=== PATIENT | female | born 1955 | race Caucasian/White ===

== ENCOUNTER 2025-11-04 14:09 | Inpatient (IN) | payer MEDICARE, OTHER ==
[2025-11-04] MEDS ORDERED: Ondansetron PF 4 MG/2 ML Vial IVP PRN (16:17)
[2025-11-04] MEDS ORDERED: hydrALAZINE 20 MG/ML VIAL SLOW IVP PRN (16:17)
[2025-11-04] MEDS: Acetaminophen 325 MG TAB PO SCH (17:17)
[2025-11-04] MEDS: Methocarbamol 500 MG TAB PO SCH (17:17)
[2025-11-04] MEDS: Famotidine 20 MG TAB PO SCH (22:13)
[2025-11-05 05:01] LABS: #Basophils 0.07 10x3/uL (0.0-0.2); #Eosinophils 0.14 10x3/uL (0.0-0.7); #Monocytes 0.66 10x3/uL (0.11-0.59); #Neutrophils 3.47 10x3/uL (1.40-6.50); %Basophils 1.1 % (0.0-1.0); %Eosinophils 2.2 % (0.0-10.0); %Lymphocytes 31.8 % (21.0-51.0); %Monocytes 10.3 % (0.0-10.0); %Neutrophils 54.3 % (42.0-75.0); Hematocrit 38.8 % (36.0-47.0); Hemoglobin 12.3 g/dL (12.0-16.0); Mean Corpuscular Hemoglobin 28.8 pg (27.0-31.0); Mean Corpuscular Volume 90.9 fL (78.0-98.0); Platelet Count 216 10x3/uL (130-400); Red Blood Cell (RBC) Count 4.27 mill/uL (4.20-5.40); White Blood Cell (WBC) Count 6.39 10x3/uL (4.8-10.8)
[2025-11-05 05:05] LABS: Anion Gap 11 mmol/L (10-20); BUN (Urea Nitrogen) 15 mg/dL (9.8-20.1); Calc. Creatinine Clearance 0 mL/min (70-130); Calcium 8.6 mg/dL (7.8-10.44); Carbon Dioxide 22 mmol/L (23-31); Chloride 109 mmol/L (98-107); Glucose 107 mg/dL (83-110); Potassium 3.8 mmol/L (3.5-5.1); Sodium 138 mmol/L (136-145)
[2025-11-05] MEDS ORDERED: Lidocaine 1% PF 5 ML VIAL ONE ×2 (07:22→12:52)
[2025-11-05] MEDS ORDERED: Ondansetron PF 4 MG/2 ML Vial ONE ×2 (07:22→13:34)
[2025-11-05] MEDS ORDERED: Clindamycin/D5W 900 MG in Premix 1 BAG IVPB SCH (07:30)
[2025-11-05] MEDS ORDERED: Ropivacaine 0.2% HCl/PF 0 ML ONE (11:52)
[2025-11-05] MEDS ORDERED: Ropivacaine 0.5% HCl/PF (150 MG/30 ML VIAL) ONE (11:52)
[2025-11-05] MEDS ORDERED: fentaNYL PF 100 MCG/2 ML SYRINGE ONE ×2 (12:52→14:55)
[2025-11-05] MEDS ORDERED: Rocuronium Bromide 10 MG/ML (10ML VIAL) ONE (12:52)
[2025-11-05] MEDS ORDERED: PROPOFOL 20 ML ONE (12:52)
[2025-11-05] MEDS ORDERED: SUGAMMADEX SODIUM 200 MG/2 ML VIAL ONE (13:37)
[2025-11-05] MEDS ORDERED: Metoclopramide HCl 10 MG (2 mL) VIAL ONE (14:23)
[2025-11-05] MEDS ORDERED: HYDROmorphone 0.5 MG/0.5 ML SYRINGE ONE (15:14)
[2025-11-05] MEDS: Clindamycin/D5W 900 MG in Premix 1 BAG IVPB SCH (21:34)
[2025-11-05] MEDS: Carvedilol 3.125 MG TAB PO SCH (23:10)
[2025-11-06 05:44] LABS: #Basophils 0.03 10x3/uL (0.0-0.2); #Eosinophils Less than 0.03 10x3/uL (0.0-0.7); #Monocytes 1.12 10x3/uL (0.11-0.59); #Neutrophils 7.68 10x3/uL (1.40-6.50); %Basophils 0.3 % (0.0-1.0); %Eosinophils 0.1 % (0.0-10.0); %Lymphocytes 13.5 % (21.0-51.0); %Monocytes 10.9 % (0.0-10.0); %Neutrophils 74.6 % (42.0-75.0); Hematocrit 36.4 % (36.0-47.0); Hemoglobin 12.0 g/dL (12.0-16.0); Mean Corpuscular Hemoglobin 29.3 pg (27.0-31.0); Mean Corpuscular Volume 88.8 fL (78.0-98.0); Platelet Count 212 10x3/uL (130-400); Red Blood Cell (RBC) Count 4.10 mill/uL (4.20-5.40); White Blood Cell (WBC) Count 10.29 10x3/uL (4.8-10.8)
[2025-11-06 05:56] LABS: Anion Gap 11 mmol/L (10-20); BUN (Urea Nitrogen) 16 mg/dL (9.8-20.1); Calc. Creatinine Clearance 0 mL/min (70-130); Calcium 8.6 mg/dL (7.8-10.44); Carbon Dioxide 23 mmol/L (23-31); Chloride 107 mmol/L (98-107); Glucose 108 mg/dL (83-110); Potassium 4.2 mmol/L (3.5-5.1); Sodium 137 mmol/L (136-145)
[2025-11-06 07:58] VITALS: TEMP 98.4
[2025-11-06] MEDS: Losartan 25 MG TAB PO SCH (08:16)
[2025-11-06] MEDS: Enoxaparin 40 MG (0.4 mL) SYRINGE SC SCH (08:16)
[2025-11-06] MEDS: Carvedilol 3.125 MG TAB PO SCH (08:16)
[2025-11-06 11:27] VITALS: BP 131/77
== END 2025-11-06 13:08 | disposition home or self-care (01) | DRG 494 ==
LOC: SURG A 16:10
PROVIDERS: ADMIT Surgery Trauma Surgery; ATTEND Surgery Trauma Surgery
PROC: 0SSF04Z Reposition Right Ankle Joint with Internal Fixation Device, Open Approach (ICD-10-PCS; principal; 2025-11-05)
DX: S82.892A Other fracture of left lower leg, initial encounter for closed fracture (principal); I44.7 Left bundle-branch block, unspecified
CPT/HCPCS: 36415; 80048; 85025; 93005; 93010; C1713; J0169; J0665; J1100; J1171; J1650; J2250; J2270; J2405; J2704; J2765; J2795; J3010; J3490